=== PATIENT | male | born 1975 | race Caucasian/White ===

== ENCOUNTER 2022-05-26 17:31 | Emergency (ER) | payer OTHER ==
[2022-05-26 18:00] LABS: Absolute Lymphocytes (CBC) 1.4 K/uL (0.7-4.9); Hematocrit 44.6 % (39.6-49.0); Lymphocytes % 21.8 % (15.3-44.8); MCV 88.2 fL (80-100); MPV 7.2 fL (7.6-11.3); RBC Red Blood Cell Count 5.06 M/uL (4.33-5.43)
[2022-05-26] MEDS ORDERED: LIDOCAINE 1% MPF 5 ML VIAL ONE ×2 (18:04→19:59)
--- NOTE | 2022-05-26 18:12 | RAD REPORT ---
EXAM DESCRIPTION: CT - Head Brain Wo Cont - 05/26/2022 6:00 pm CLINICAL HISTORY: Head trauma, abnormal mental status COMPARISON: <Comparisons> TECHNIQUE: All CT scans are performed using dose optimization technique as appropriate and may inclu de automated exposure control or mA/KV adjustment according to patient size. FINDINGS: No intracranial hemorrhage, hydrocephalus or extra-axial fluid collection.No areas of brai n edema or evidence of midline shift. The paranasal sinuses and mastoids are clear. The calvarium is intact. IMPRESSION: No acute intracranial abnormality.
[2022-05-26 18:20] LABS: Potassium 3.7 mmol/L (3.5-5.1); Troponin High Sensitivity 4.9 pg/mL (<58.9)
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
--- NOTE | 2022-05-26 18:46 | RAD REPORT ---
EXAM DESCRIPTION: RAD - Facial Bones <3 Views - 05/26/2022 6:32 pm CLINICAL HISTORY: FACIAL PAIN Trauma, pain COMPARISON: No comparisons FINDINGS: The paranasal sinuses and mastoids are clear. The calvarium is intact.
--- NOTE | 2022-05-26 18:46 | RAD REPORT ---
EXAM DESCRIPTION: RAD - Femur Right - 05/26/2022 6:32 pm CLINICAL HISTORY: PAIN COMPARISON: No comparisons FINDINGS: No acute fracture or dislocation is seen. Trace suprapatellar joint fluid.
--- NOTE | 2022-05-26 18:46 | RAD REPORT ---
EXAM DESCRIPTION: RAD - Forearm Right - 05/26/2022 6:32 pm CLINICAL HISTORY: PAIN COMPARISON: No comparisons FINDINGS: Moderate soft tissue swelling is seen along the radial aspect of the forearm. No acute fra cture or dislocation. Moderate olecranon spur.
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
[2022-05-26] MEDS ORDERED: HYDROCODONE/APAP 7.5/325 MG TAB ONE (21:03)
[2022-05-26] MEDS ORDERED: CEPHALEXIN 250 MG CAP ONE (21:04)
[2022-05-26 21:30] VITALS: TEMP 98.3
[2022-05-26 21:36] VITALS: BP 147/94; O2SAT 86
--- NOTE | 2022-05-27 13:47 | EKG ---
Test Date: 2022-05-26 Test Time: 18:34:08 Hardwood Floor Installer: MEASUREMENT RESULTS: Intervals: Rate: 90 NH: 162 QRSD: 106 QT: 362 QTc: 442 [place]: P: 33 NH: 162 QRS: -24 T: 10 INTERPRETIVE STATEMENTS: Normal sinus rhythm Normal ECG No previous ECG available for comparison Electronically Signed On 05-27-22 13:45:38 CDT by Samy Moralez
== END 2022-05-26 20:54 | disposition home or self-care (01) ==
LOC: ER 17:31
PROC: 0CQ1XZZ Repair Lower Lip, External Approach (ICD-10-PCS; principal; 2022-05-26)
DX: S06.0X1A Concussion with loss of consciousness of 30 minutes or less, initial encounter (principal); S01.511A Laceration without foreign body of lip, initial encounter; S50.11XA Contusion of right forearm, initial encounter; V27.4XXA Motorcycle driver injured in collision with fixed or stationary object in traffic accident, initial encounter; I10 Essential (primary) hypertension
CPT/HCPCS: 36415; 70140; 70450; 71045; 80048; 82550; 84484; 85025; 93005; 99284